=== PATIENT | male | born 1965 | race Caucasian/White ===

== ENCOUNTER → 2016-11-16 | Outpatient (CLI) | payer BC | LOC: GMAH 10:23 | PROVIDERS: ATTEND Family Medicine | DX: L40.54 Psoriatic juvenile arthropathy (principal) ==

== ENCOUNTER → 2018-01-13 | Outpatient (CLI) | payer BC | LOC: GMAH 14:46 | PROVIDERS: ATTEND Family Medicine | DX: Z00.00 Encounter for general adult medical examination without abnormal findings (principal); Z12.5 Encounter for screening for malignant neoplasm of prostate ==

== ENCOUNTER → 2018-09-03 | Outpatient (CLI) | payer BC | LOC: GMAH 17:14 | PROVIDERS: ATTEND Family Medicine | DX: L40.59 Other psoriatic arthropathy (principal); Z79.899 Other long term (current) drug therapy ==

== ENCOUNTER → 2018-09-22 | Outpatient (CLI) | payer BC | LOC: GMAH 14:05 | PROVIDERS: ATTEND Family Medicine | DX: R56.9 Unspecified convulsions (principal); E78.2 Mixed hyperlipidemia ==

== ENCOUNTER → 2018-12-22 | Outpatient (CLI) | payer BC | LOC: GMAH 11:01 | PROVIDERS: ATTEND Family Medicine | DX: I10 Essential (primary) hypertension (principal) ==

== ENCOUNTER → 2019-02-24 | Outpatient (CLI) | payer BC | LOC: GMAH 12:00 | PROVIDERS: ATTEND Family Medicine | DX: M06.9 Rheumatoid arthritis, unspecified (principal); I10 Essential (primary) hypertension; Z12.5 Encounter for screening for malignant neoplasm of prostate ==

== ENCOUNTER → 2020-02-22 | Outpatient (CLI) | payer BC | LOC: GMA MATASK 11:42 | PROVIDERS: ATTEND Family Medicine | DX: M06.9 Rheumatoid arthritis, unspecified (principal) ==

== ENCOUNTER → 2020-02-23 | Outpatient (CLI) | payer BC | LOC: LAB.O 12:16 | PROVIDERS: ATTEND Internal Medicine Rheumatology | DX: L40.59 Other psoriatic arthropathy (principal); Z01.89 Encounter for other specified special examinations; Z79.899 Other long term (current) drug therapy ==

== ENCOUNTER → 2020-12-29 | Outpatient (CLI) | payer BC | LOC: GMA MATASK 16:53 | PROVIDERS: ATTEND Family Medicine | DX: I10 Essential (primary) hypertension (principal); Z79.899 Other long term (current) drug therapy; L40.59 Other psoriatic arthropathy ==